=== PATIENT | male | born 1945 | race Caucasian/White ===

== ENCOUNTER → 2016-10-15 | Outpatient (CLI) | payer OTHER | LOC: RAD 14:07 | DX: Z01.818 Encounter for other preprocedural examination (principal) ==

== ENCOUNTER 2016-11-04 05:15 | Inpatient (IN) | payer OTHER ==
[2016-10-30 13:23] LABS: HEMATOCRIT 45.1 % (42.0-52.0); HEMOGLOBIN 15.3 gm/dL (14.0-18.0); MCH 31.3 pg (26.0-34.0); MCV 92.1 fL (80.0-100.0); RBC 4.9 mil/uL (4.50-6.00); RDW 13.6 % (10.5-14.5)
[2016-10-30 13:26] LABS: URINE BILIRUBIN NEGATIVE (Negative); URINE BLOOD NEGATIVE (Negative); URINE COLOR YELLOW; URINE GLUCOSE-RANDOM* NEGATIVE (Negative); URINE KETONES NEGATIVE (Negative); URINE LEUKOCYTES-REFLEX NEGATIVE (Negative); URINE PROTEIN (DIPSTICK) NEGATIVE (Negative); URINE SPECIFIC GRAVITY <= 1.005 (1.003-1.035); URINE UROBILINOGEN 0.2 E.U./dl (0.2-1.0)
[2016-10-30 13:32] LABS: CALCIUM 8.7 mg/dL (8.5-10.1); POTASSIUM 4.5 mmol/L (3.5-5.1)
[2016-10-30 13:35] LABS: INR 1.2; PROTIME 11.8 Seconds (9.3-11.4)
[2016-11-04] VITALS (8 sets, daily range): BP systolic 114–146; BP diastolic 56–69
[~2016-11-04] VITALS: Ht 177.8 cm; Wt 102.1 kg
--- NOTE | ~2016-11-04 | O ---
[facility] [place] [address] OPERATIVE REPORT Name: MARCIANO JESSICA Room #: 406-P [facility] IN M.R.#: [id number] Admission: 11/04/16 Attend Phys: Osman Simmons MD Discharge: Date of : 49 Report #: [id number] THIS REPORT FOR: //name// CC: Osman Colvin DATE OF SERVICE: 11/04/2016 PREOPERATIVE DIAGNOSIS: End-stage degenerative arthritis, right hip. POSTOPERATIVE DIAGNOSIS: End-stage degenerative arthritis, right hip. PROCEDURE: Right total hip arthroplasty. SURGEON: Osman Simmons MD INDICATIONS: This 71-year-old gentleman complains of progressive right hip pain which has advanced significantly over the past couple of years. Clinical evaluation and x-rays confirm rather significant degenerative arthritis with joint space narrowing and significant spurring with some cystic degeneration of both the femoral head and acetabulum. We have discussed treatment options and he has elected to go ahead with total hip replacement. DESCRIPTION OF PROCEDURE: The patient was taken to the operating room, where he was placed under general anesthesia. Prophylactic intravenous antibiotics were administered. He was turned to the left lateral decubitus position. The right hip and thigh were meticulously prepped and draped. A slightly curving posterolateral skin incision was made centered over the greater trochanter. This was carried through subcutaneous tissues and fascia to expose the posterior aspect of the hip joint. The short external rotators and capsule were taken down and tagged with several #1 Tevdek sutures. The hip was dislocated. Marked degenerative change on both the femoral head and the acetabulum was noted. A femoral neck osteotomy was performed. The canal was opened with reamers and hand broaches. The [employer] Secur-Fit hip system was utilized. A size 9 press-fit stem seemed to fit nicely. The neck was trimmed out in appropriate level. The trial femoral component was removed and attention directed to the acetabulum. Good exposure was established and the acetabulum was sequentially reamed, gradually advancing to a size 55-mm reamer. A 56-mm fenestrated metal cup was then inserted. This was aligned with his true acetabulum, placing this in about 20 degrees of anteversion and about 40 degrees off of vertical. The cup seated nicely and appeared to be quite secure. In addition, 2 cancellous screws were placed through the apex of the shell, engaging good periacetabular bone and adding to security. Once this was fully seated and secured, a 36-mm polyethylene liner was then placed, positioning the 10-degree elevated carter at about the 9 and 10 o'clock posterior position. This seated nicely and appeared to be secure as well. A trial reduction was performed and the hip was nicely [address] [address] OPERATIVE REPORT Name: MARCIANO JESSICA Room #: 406-P [facility] IN M.R.#: [id number] Admission: 11/04/16 Attend Phys: Osman Simmons MD Discharge: Date of : 49 Report #: [id number] suited for a size 10 stem and a +0 neck length with a 36-mm head size with the trial components in position, leg length DICTATION ENDS HERE. <ELECTRONICALLY SIGNED> By: Osman Simmons MD 11/05/16 0814 1133 1200 Osman Simmons MD /nt
--- NOTE | ~2016-11-04 | EKG ---
[place] [address] [facility] [place] [address] ELECTROCARDIOGRAM REPORT Name: MARCIANO JESSICA Room #: PRE IN ..#: [id number] Admission: Attend Phys: Osman Simmons MD Discharge: Date of : 49 Report #: [id number] THIS REPORT FOR: //name// [facility] Test Date: 2016-10-30 Test Time: 13:15:29 Pat Name: MARCIANO JESSICA Department: Room: Gender: Gambling Dealer: neeraj : 1945 Requested By: Osman Simmons Order Number: [id number] MD: Jacques Ryan Measurements Intervals [place] Rate: 68 P: 42 SD: 170 QRS: 61 QRSD: 101 T: 6 QT: 415 QTc: 442 Interpretive Statements Sinus rhythm Abnormal R-wave progression, early transition Cannot rule out inferior infarct, old Compared to ECG 09/14/2002 08:02:53 No significant change was found Electronically Signed On 10-31-2016 8:59:56 CDT by Jacques Ryan [email or web address] <ELECTRONICALLY SIGNED> By: Jacques Ryan MD, [facility] 10/31/16 0859 1315 1315 Jacques Ryan MD, [facility] /EPI
--- NOTE | ~2016-11-04 | D ---
[facility] [place] [address] DISCHARGE SUMMARY Name: ARACELYMARCIANO STRONG Room #: 406-P [facility] IN M.R.#: [id number] Admission: 11/04/16 Attend Phys: Osman Simmons MD Discharge: 11/07/16 Date of : 49 Report #: [id number] THIS REPORT FOR: //name// CC: Osman Colvin DATE OF SERVICE: 11/07/2016 FINAL DIAGNOSIS: End-stage degenerative arthritis, right hip. OPERATIONS AND PROCEDURES: Right total hip arthroplasty. HISTORY OF PRESENT ILLNESS: This active, independent 71-year-old gentleman presents with progressive right hip pain. Clinical evaluation and x-rays confirm degenerative arthritis of the right hip. He has not seen improvement with conservative management and has elected to go ahead with right total hip arthroplasty. HOSPITAL COURSE: The patient was admitted and taken to the operating room on 11/04/2016 and he underwent right total hip arthroplasty, which he tolerated well. Postoperatively, his course was largely unremarkable. He was able to advance to regular diet and off IV fluids. He was able to advance to oral analgesics and off IV analgesics. He was able to start physical therapy and advanced to a walker and could manage some steps with limited assistance. He was started on anticoagulation using Xarelto. He seems to be well controlled at this point with moderate discomfort managed with oral hydrocodone. He seems ready for discharge home. DISCHARGE MEDICATIONS: Include quinapril 10 mg every day, metoprolol 25 mg every day, atorvastatin 40 mg every day, Zetia 5 mg every day, glipizide 5 mg b.i.d., metformin 500 mg q.i.d., hydrocodone 10/325 one q. 4-6 hours p.r.n. for pain and Xarelto 10 mg once daily. He will continue a regular diet and routine exercises and activities at home. We will have some visiting therapy at home until he feels safe to proceed with outpatient therapy. He will call me next week if there are any problems or questions and we will plan to see him back in 2 weeks for followup and suture removal. <ELECTRONICALLY SIGNED> By: Osman Simmons MD 11/08/16 0932 1437 1920 Osman Simmons MD /nt
[~2016-11-04 05:15] MED LIST: ASPIRIN325 PO; ATORVASTATIN CA40 MG PO; GLUCOTROL5 MG PO; METFORMIN HCL500 MG PO; MOBIC7.5 MG PO; QUINAPRIL HCL10 MG PO; TOPROL XL25 MG PO; TYLENOL325 MG PO; ZETIA10 MG PO
[2016-11-05 00:08] VITALS: BP 143/56
[2016-11-05 02:58] VITALS: BP 145/60
[2016-11-05 04:17] LABS: HEMOGLOBIN 13.2 gm/dL (14.0-18.0); MCH 31.4 pg (26.0-34.0); MCHC 33.9 g/dL (28.0-37.0); MCV 92.6 fL (80.0-100.0); PLATELET COUNT 221 thou/uL (150-400); RBC 4.21 mil/uL (4.50-6.00); RDW 13.2 % (10.5-14.5); WBC 12.3 thou/uL (4.0-11.0)
[2016-11-05 04:23] LABS: MANUAL DIFF YES
[2016-11-05 04:32] LABS: CREATININE 0.9 mg/dL (0.7-1.3); MAGNESIUM 1.8 mg/dL (1.8-2.4)
[2016-11-05 08:10] LABS: ABSOLUTE NEUTROPHILS 8.5 thou/uL (1.4-8.2); TOTAL CELL COUNT 100
[2016-11-05 08:11] LABS: ANISOCYTOSIS 1+
[2016-11-05 08:36] VITALS: BP 143/62
[2016-11-05 17:05] VITALS: BP 126/54
[2016-11-05 20:15] VITALS: BP 128/57
[2016-11-06 04:39] LABS: HEMATOCRIT 37.9 % (42.0-52.0); HEMOGLOBIN 12.7 gm/dL (14.0-18.0); MCH 31.5 pg (26.0-34.0); MCHC 33.6 g/dL (28.0-37.0); MCV 93.7 fL (80.0-100.0); RBC 4.05 mil/uL (4.50-6.00); RDW 13.6 % (10.5-14.5)
[2016-11-06 05:19] VITALS: BP 127/55
[2016-11-06 07:39] VITALS: BP 122/61
[2016-11-06 16:23] VITALS: BP 132/63
[2016-11-06 19:00] VITALS: BP 171/67
[2016-11-07 03:38] VITALS: BP 115/74
[2016-11-07 05:53] LABS: HEMATOCRIT 34.9 % (42.0-52.0); HEMOGLOBIN 12.2 gm/dL (14.0-18.0); MCH 32.1 pg (26.0-34.0); MCHC 34.9 g/dL (28.0-37.0); RBC 3.79 mil/uL (4.50-6.00); RDW 13.4 % (10.5-14.5); WBC 10.5 thou/uL (4.0-11.0)
[2016-11-07 07:20] VITALS: BP 154/69
[2016-11-07 09:34] VITALS: BP 157/69
[2016-11-07 09:46] VITALS: BP 157/69
[2016-11-07 12:55] VITALS: BP 157/69
== END 2016-11-07 16:17 | disposition home health service (06) | DRG 470 ==
LOC: 4N 05:15 → TBA 05:15 → PRE 08:16 → 4N 11:05 → PRE 12:43 → 4N 11-07 16:17
PROVIDERS: Nurse Practitioner; Orthopaedic Surgery
PROC: 0SR902A Replacement of Right Hip Joint with Metal on Polyethylene Synthetic Substitute, Uncemented, Open Approach (ICD-10-PCS; principal; 2016-11-04)
DX: M16.11 Unilateral primary osteoarthritis, right hip (principal); I10 Essential (primary) hypertension; E78.5 Hyperlipidemia, unspecified; E11.9 Type 2 diabetes mellitus without complications; I25.2 Old myocardial infarction; Z82.49 Family history of ischemic heart disease and other diseases of the circulatory system; Z80.9 Family history of malignant neoplasm, unspecified; Z90.49 Acquired absence of other specified parts of digestive tract; Z87.891 Personal history of nicotine dependence
CPT/HCPCS: 10790; 50010; 50101; 50382; 50414; 51412; 51771; 53000; 55388; 56521; 56525; 56527; 62110; 62900; 70005

== ENCOUNTER → 2019-09-24 | Outpatient (CLI) | payer OTHER | LOC: SJCVCIMAG 08:55 | PROVIDERS: ATTEND Internal Medicine Cardiovascular Disease | DX: R94.31 Abnormal electrocardiogram [ECG] [EKG] (principal); R06.00 Dyspnea, unspecified; I25.10 Atherosclerotic heart disease of native coronary artery without angina pectoris; I10 Essential (primary) hypertension; E78.5 Hyperlipidemia, unspecified ==

== ENCOUNTER → 2020-01-25 | Outpatient (CLI) | payer OTHER | LOC: LAB 07:33 | PROVIDERS: ATTEND Neuromusculoskeletal Medicine & OMM | DX: U07.1 COVID-19 (principal) ==